=== PATIENT | male | born 1970 | race Two or more races ===

== ENCOUNTER 2017-02-06 18:26 | Emergency (ER) | payer OTHER ==
[~2017-02-06] VITALS: Ht 160 cm; Wt 84.6 kg
[2017-02-06] MEDS ORDERED: IV NORMAL SALINE 1,000ML 1,000 ML IV SCH (19:00)
[2017-02-06] MEDS ORDERED: ONDANSETRON PF 4 MG/2 ML VIAL. IV ONE (19:00)
[2017-02-06] MEDS ORDERED: KETOROLAC 15 MG/ML VIAL. IV ONE (19:00)
[2017-02-06 19:05] LABS: BACTERIA,URINE 0 /HPF (0-FEW); BILIRUBIN,URINE NEG (NEG); CLARITY,URINE CLEAR; COLOR,URINE STRAW; GLUCOSE,URINE NEG (NEG); NITRITE,URINE NEG (NEG); RBC,URINE RARE /HPF (0-2); UROBILINOGEN,URINE 0.2 mg/dL (0.2 mg/dL); WBC,URINE OCC /HPF (0-4)
[2017-02-06 19:13] LABS: BASO # 0.1 x10^3/uL (0.0-0.2); BASO % 1 % (0-3); EOS # 0.2 x10^3/uL (0.0-0.7); EOS % 2 % (0-3); HEMATOCRIT 49.5 % (39.0-53.0); HEMOGLOBIN 16.5 g/dL (13.0-17.5); LYMPH % 27 % (24-48); MEAN CORPUSCULAR HEMOGLOBIN 31 pg (25-35); MEAN CORPUSCULAR HGB CONC 33 g/dL (31-37); MEAN CORPUSCULAR VOLUME 94 fL (79-100); MONO # 0.7 x10^3/uL (0.0-1.1); MONO % 6 % (0-9); NEUT # 7.1 x10^3uL (1.8-7.7); NEUT % 64 % (31-73); PLATELET COUNT 200 x10^3/uL (140-400); RED CELL DISTRIBUTION WIDTH 12.9 % (11.5-14.5); WHITE BLOOD COUNT 11.1 x10^3/uL (4.0-11.0)
[2017-02-06 19:26] LABS: ALBUMIN 4.3 g/dL (3.4-5.0); ALBUMIN/GLOBULIN RATIO 1.1 (1.0-1.7); BARBITURATES NEG (NEG); BENZODIAZEPINES NEG (NEG); CALCIUM 9.4 mg/dL (8.5-10.1); CANNABINOIDS NEG (NEG); COCAINE NEG (NEG); CREATININE 1.1 mg/dL (0.7-1.3); GFR 72.1; METHADONE NEG (NEG); OPIATES NEG (NEG); PHENCYCLIDINE NEG (NEG); POTASSIUM 3.8 mmol/L (3.5-5.1); TOTAL BILIRUBIN 0.6 mg/dL (0.2-1.0); TOTAL PROTEIN 8.3 g/dL (6.4-8.2)
[2017-02-06 19:27] LABS: AMPHETAMINE/METHAMPHETAMINE NEG (NEG)
[2017-02-06] MEDS ORDERED: fentaNYL PF 100 MCG/2 ML VIAL IV PRN (19:30)
--- NOTE | 2017-02-06 19:34 | ED.ADGEN ---
Past History Past Medical History: Diabetes, High Cholesterol, Hypertension Past Surgical History: Other Alcohol Use: Occasionally Drug Use: None Adult General HPI HPI Patient is a 46-year-old man, with a history of type 2 diabetes mellitus, hypertension, hypercholesterolemia, asthma, who presents to the emergency department with a complaint of left-sided pain radiating into his left abdomen for about the past . Patient states that yesterday evening, he began experiencing a sharp shooting pain located in the left side of his abdomen radiating into his lower abdomen, he denies any similar symptoms previously. His history of chronic back pain for which he takes Lyrica and tramadol, he states this is different than his usual back pain. He denies any injuries, no chest pain or shortness of breath, any fevers or chills, any nausea or vomiting , any diarrhea, any sick contacts or exposures, any similar symptoms previously. No urinary complaints. He states the pain is worse with motion, states it feels like it is "on the inside". No swelling extremities of the, no rashes. No recent travel or surgery. Review of Systems Review of Systems Constitutional: Denies fever or chills [] Eyes: Denies change in visual acuity, redness, or eye pain [] HENT: Denies nasal congestion or sore throat [] Respiratory: Denies cough or shortness of breath [] Cardiovascular: No additional information not addressed in HPI [] GI: Denies nausea, vomiting, bloody stools or diarrhea. Left-sided flank abdominal pain. [] : Denies dysuria or hematuria [] Musculoskeletal: Denies back pain or joint pain [] Integument: Denies rash or skin lesions [] Neurologic: Denies headache, focal weakness or sensory changes [] Endocrine: Denies polyuria or polydipsia [] Current Medications Current Medications Current Medications Medications (Trade) Dose Ordered Sig/Jes Start Time Stop Time Status Last Admin Dose Admin Fentanyl Citrate (Fentanyl 2ml Vial) 50 mcg PRN Q15MIN PRN 02/06/17 19:30 02/06/17 22:54 DC Ketorolac Tromethamine (Toradol) 10 mg 1X ONCE 02/06/17 19:00 02/06/17 19:01 DC 02/06/17 19:00 10 MG Levofloxacin (Levaquin) 500 mg 1X ONCE 02/06/17 22:30 02/06/17 22:31 DC 02/06/17 22:10 500 MG Metronidazole (Flagyl) 500 mg 1X ONCE 02/06/17 22:30 02/06/17 22:31 DC 02/06/17 22:10 500 MG Ondansetron HCl (Zofran) 4 mg 1X ONCE 02/06/17 19:00 02/06/17 19:01 DC 02/06/17 19:00 4 MG Oxycodone/ Acetaminophen (Percocet 5/325) 1 tab 1X ONCE 02/06/17 22:30 02/06/17 22:31 DC Sodium Chloride 1,000 ml @ 1,000 mls/hr Q1H 02/06/17 19:00 02/06/17 19:59 DC 02/06/17 19:00 1,000 MLS/HR Allergies Allergies Allergies Coded Allergies Type Severity Reaction Last Updated Verified Penicillins Allergy Intermediate Unknown 02/06/17 Yes iodine Allergy Intermediate Unknown 02/06/17 Yes shellfish derived Allergy Intermediate Unknown 02/06/17 Yes Physical Exam Physical Exam Constitutional: Well developed, well nourished, no acute distress, non-toxic appearance. [] HENT: Normocephalic, atraumatic, bilateral external ears normal, oropharynx moist, no oral exudates, nose normal. [] Eyes: PERRLA, EOMI, conjunctiva normal, no discharge. [] Neck: Normal range of motion, no tenderness, supple, no stridor. [] Cardiovascular:Heart rate regular rhythm, no murmur, S1, S2, rubs or gallops. [] Lungs & Thorax: Bilateral breath sounds clear to auscultation, no wheezing, rhonchi, rales. No chest wall crepitus or tenderness. [] Abdomen: Bowel sounds normal, soft, patient with tenderness palpation in the left lower quadrant, radiating up to the left side of the abdomen, no rebound, rigidity, no guarding, no masses, no pulsatile masses. [] Skin: Warm, dry, no erythema, no rash. [] Back: No midline or paraspinal tenderness, mild left-sided CVA tenderness. Extremities: No tenderness, no cyanosis, no clubbing, ROM intact, no edema. [ Negative Homans sign.] Neurologic: Alert and oriented X 3, normal motor function, normal sensory function, no focal deficits noted. [] Psychologic: Affect normal, judgement normal, mood normal. [] Current Patient Data Vital Signs Vital Signs Date Time Temp Pulse Resp B/P (MAP) Pulse Ox O2 Delivery O2 Flow Rate FiO2 02/06/17 18:36 97.4 59 20 98 Room Air Lab Results Laboratory Tests Test 02/06/17 18:30 02/06/17 18:54 Urine Collection Type Unknown Urine Color Straw Urine Clarity Clear Urine pH 5.5 Urine Specific [place] <=1.005 Urine Protein Neg (NEG-TRACE) Urine Glucose (UA) Neg mg/dL (NEG) Urine Ketones (Stick) Neg mg/dL (NEG) Urine Blood Trace (NEG) Urine Nitrite Neg (NEG) Urine Bilirubin Neg (NEG) Urine Urobilinogen Dipstick 0.2 mg/dL (0.2 mg/dL) Urine Leukocyte Esterase Neg (NEG) Urine RBC Rare /HPF (0-2) Urine WBC Occ /HPF (0-4) Urine Bacteria 0 /HPF (0-FEW) White Blood Count 11.1 x10^3/uL (4.0-11.0) H Red Blood Count 5.30 x10^6/uL (4.30-5.70) Hemoglobin 16.5 g/dL (13.0-17.5) Hematocrit 49.5 % (39.0-53.0) Mean Corpuscular Volume 94 fL (79-100) Mean Corpuscular Hemoglobin 31 pg (25-35) Mean Corpuscular Hemoglobin Concent 33 g/dL (31-37) Red Cell Distribution Width 12.9 % (11.5-14.5) Platelet Count 200 x10^3/uL (140-400) Neutrophils (%) (Auto) 64 % (31-73) Lymphocytes (%) (Auto) 27 % (24-48) Monocytes (%) (Auto) 6 % (0-9) Eosinophils (%) (Auto) 2 % (0-3) Basophils (%) (Auto) 1 % (0-3) Neutrophils # (Auto) 7.1 x10^3uL (1.8-7.7) Lymphocytes # (Auto) 3.0 x10^3/uL (1.0-4.8) Monocytes # (Auto) 0.7 x10^3/uL (0.0-1.1) Eosinophils # (Auto) 0.2 x10^3/uL (0.0-0.7) Basophils # (Auto) 0.1 x10^3/uL (0.0-0.2) Sodium Level 140 mmol/L (136-145) Potassium Level 3.8 mmol/L (3.5-5.1) Chloride Level 103 mmol/L (98-107) Carbon Dioxide Level 29 mmol/L (21-32) Anion Gap 8 (6-14) Blood Urea Nitrogen 16 mg/dL (8-26) Creatinine 1.1 mg/dL (0.7-1.3) Estimated GFR (Cockcroft-Gault) 72.1 BUN/Creatinine Ratio 15 (6-20) Glucose Level 93 mg/dL (70-99) Calcium Level 9.4 mg/dL (8.5-10.1) Total Bilirubin 0.6 mg/dL (0.2-1.0) Aspartate Amino Transferase (AST) 20 U/L (15-37) Alanine Aminotransferase (ALT) 37 U/L (16-63) Alkaline Phosphatase 53 U/L (46-116) Total Protein 8.3 g/dL (6.4-8.2) H Albumin 4.3 g/dL (3.4-5.0) Albumin/Globulin Ratio 1.1 (1.0-1.7) Lipase 132 U/L (73-393) Urine Opiates Screen Neg (NEG) Urine Methadone Screen Neg (NEG) Urine Barbiturates Neg (NEG) Urine Phencyclidine Screen Neg (NEG) Urine Amphetamine/Methamphetamine Neg (NEG) Urine Benzodiazepines Screen Neg (NEG) Urine Cocaine Screen Neg (NEG) Urine Cannabinoids Screen Neg (NEG) Urine Ethyl Alcohol Neg (NEG) EKG EKG Not indicated. [] Radiology/Procedures Radiology/Procedures [][address] [address] IMAGING REPORT Signed PATIENT: PINEDA KHAN ACCOUNT: [id number] : 1970 LOCATION: ER AGE: 46 SEX: M EXAM STATUS: REG ER ORD. PHYSICIAN: SAMIRA BEYER DO REASON: L flank/abd pain PROCEDURE: CT ABDOMEN PELVIS WO CONTRAST CT study of the abdomen and pelvis without contrast Clinical indications left flank pain. Possible urinary tract stone. TECHNIQUE: Noncontrast helical CT scanning of the abdomen and pelvis was performed. Without contrast, the sensitivity to detect organ pathology and GI tract pathology is decreased. PQRS compliance Statement One or more of the following individualized dose reduction techniques were utilized for this study: 1. Automated exposure control 2. Adjustment of the mA and/or kV according to patient size 3. Use of iterative reconstruction technique FINDINGS: The liver and spleen and pancreas are homogeneous in appearance on this noncontrast study. The gallbladder is normal and no extrahepatic biliary ductal dilatation is seen. No adrenal mass is evident. No hydronephrosis or hydroureter or urinary tract stone is seen. No focal aneurysmal dilatation of the abdominal aorta is seen. No enlarged abdominal or pelvic lymphadenopathy is seen. Urinary bladder wall is smooth. Colonic diverticulosis is seen. There is pericolonic inflammatory change involving the mid sigmoid colon consistent with diverticulitis. No abscess or free fluid or free air or bowel obstruction is evident. The appendix is normal. There is unilateral pars defect of the right side of L5. No anterolisthesis is seen. No osteolytic process is evident. No lung base consolidation IMPRESSION: Mild descending colon diverticulitis. No urinary tract stone. Right-sided unilateral pars defect of L5. Electronically signed by: Juana Harrell MD (02/06/2017 9:42 PM) [facility] DICTATED AND SIGNED BY: JUANA HARRELL MD DATE: 02/06/172123 CC: SAMIRA BEYER DO; CITLALLI SANCHEZ DO, MPH ~ Course & Med Decision Making Course & Med Decision Making Pertinent Labs and Imaging studies reviewed. (See chart for details) Patient with tenderness in the left flank and left side and left lower abdomen, otherwise well-appearing in the emergency department with no other complaints. Discussion with patient, based on the length of symptoms, and the sharp shooting nature and location, will obtain CT abdomen and pelvis without contrast to assess for possible stone versus other occult cause of symptoms. Discussed risk versus benefit of imaging with patient, patient is agreeable with this plan, also to receive laboratory studies, IV fluids, antiemetics, pain medication, currently states his pain is 8 of 10. Patient received pain medication with good effect, CT of abdomen and pelvis revealed evidence of mild diverticulitis in the sigmoid colon, no abscess formation or other concerning findings identified. Laboratory studies revealed a very mild leukocytosis at 11.1, without any other concerning findings identified. On reevaluation, patient is resting comfortably, vital signs remained within normal limits, I did discuss findings with patient, he is agreeable to oral course of antibiotics , pain medication, antiemetics as needed, and follow-up with GI. He had a colonoscopy performed in March, states however that he would like information about additional GI physicians in the area. He was given several possible contacts, instructed to call on Wednesday to schedule follow-up appointments, and to return to the ED with any concerning symptoms as discussed. Patient and at bedside voiced understanding and agreement. Patient discharged home in stable condition with his , with prescriptions for Levaquin, metronidazole, Zofran, and Percocet, with clear and detailed return instructions and precautions. Final Impression Final Impression [] Problems: Dragon Disclaimer Dragon Disclaimer This electronic medical record was generated, in whole or in part, using a voice recognition dictation system. Departure: Impression: Primary Impression: Diverticulitis Disposition: HOME, SELF-CARE Condition: IMPROVED Scripts Oxycodone Hcl/Acetaminophen (PERCOCET 5-325 MG TABLET) 1 Each Tablet 1-2 TAB PO Q4-6HRS, #12 TAB Prov: SAMIRA BEYER DO 02/06/17 Ondansetron Hcl (ZOFRAN) 4 Mg Tablet 4 MG PO PRN Q8HRS Y for NAUSEA, #12 Prov: SAMIRA BEYER DO 02/06/17 Levofloxacin (LEVAQUIN) 750 Mg Tablet 1 TAB PO DAILY, #9 TAB Prov: SAMIRA BEYER DO 02/06/17 Metronidazole (METRONIDAZOLE) 500 Mg Tablet 1 TAB PO TID, #30 TAB Prov: SAMIRA BEYER DO 02/06/17 SAMIRA BEYER DO Feb 06, 2017 19:34
--- NOTE | 2017-02-06 21:45 | RAD ---
CT study of the abdomen and pelvis without contrast Clinical indications left flank pain. Possible urinary tract stone. TECHNIQUE: Noncontrast helical CT scanning of the abdomen and pelvis was performed. Without contrast, the sensitivity to detect organ pathology and GI tract pathology is decreased. PQRS compliance Statement One or more of the following individualized dose reduction techniques were utilized for this study: 1. Automated exposure control 2. Adjustment of the mA and/or kV according to patient size 3. Use of iterative reconstruction technique FINDINGS: The liver and spleen and pancreas are homogeneous in appearance on this noncontrast study. The gallbladder is normal and no extrahepatic biliary ductal dilatation is seen. No adrenal mass is evident. No hydronephrosis or hydroureter or urinary tract stone is seen. No focal aneurysmal dilatation of the abdominal aorta is seen. No enlarged abdominal or pelvic lymphadenopathy is seen. Urinary bladder wall is smooth. Colonic diverticulosis is seen. There is pericolonic inflammatory change involving the mid sigmoid colon consistent with diverticulitis. No abscess or free fluid or free air or bowel obstruction is evident. The appendix is normal. There is unilateral pars defect of the right side of L5. No anterolisthesis is seen. No osteolytic process is evident. No lung base consolidation IMPRESSION: Mild descending colon diverticulitis. No urinary tract stone. Right-sided unilateral pars defect of L5. Electronically signed by: Brandon Harrell MD (02/06/2017 9:42 PM) [facility]
[2017-02-06] MEDS: oxyCODONE/APAP 5/325 1 TAB TABLET PO ONE ×2 (22:11→22:14)
[2017-02-06 22:16] VITALS: BP 137/61
[2017-02-06] MEDS ORDERED: levoFLOXacin 500 MG TABLET PO ONE (22:30)
[2017-02-06] MEDS ORDERED: metroNIDAZOLE 500 MG TABLET PO ONE (22:30)
[2017-02-06] MEDS ORDERED: METR500T8 PO (22:37)
[2017-02-06] MEDS ORDERED: OXYC-323 PO (22:37)
[2017-02-06] MEDS ORDERED: LEVO750T31 PO (22:37)
[2017-02-06] MEDS ORDERED: ONDA4TAB7 PO (22:37)
== END 2017-02-06 22:53 | disposition home or self-care (01) ==
LOC: ER 18:26
DX: K57.32 Diverticulitis of large intestine without perforation or abscess without bleeding (principal); E11.9 Type 2 diabetes mellitus without complications; I10 Essential (primary) hypertension; J45.909 Unspecified asthma, uncomplicated; Z91.041 Radiographic dye allergy status; Z88.0 Allergy status to penicillin; Z91.013 Allergy to seafood
CPT/HCPCS: 36415; 74176; 80053; 80307; 81001; 83690; 85025; 96361; 96374; 96375; 99285; J1885; J2405; G0479; J7030

== ENCOUNTER → 2018-05-18 | Outpatient (CLI) | payer OTHER ==
[~2018-05-18] MED LIST: BUPIVACAINE MPF 0.5% 30 ML VIAL. ONE; LEVO750T31 PO; LIDOCAINE 1% PF 30 ML VIAL. ONE; METR-84 PO; ONDA4TAB7 PO; OXYC1TAB15 PO
== END | disposition home or self-care (01) ==
LOC: SURG 12:10
PROVIDERS: ATTEND Anesthesiology Pain Medicine
DX: M47.816 Spondylosis without myelopathy or radiculopathy, lumbar region (principal); J45.909 Unspecified asthma, uncomplicated; G47.30 Sleep apnea, unspecified; I10 Essential (primary) hypertension; R01.1 Cardiac murmur, unspecified; K44.9 Diaphragmatic hernia without obstruction or gangrene; E11.9 Type 2 diabetes mellitus without complications; G43.909 Migraine, unspecified, not intractable, without status migrainosus; Z88.0 Allergy status to penicillin; Z79.899 Other long term (current) drug therapy
CPT/HCPCS: 64493; 64494; J2001; J3490